=== PATIENT | female | born 1980 | race Caucasian/White ===

== ENCOUNTER 2018-04-01 15:07 | Emergency (ER) | payer BC, MEDICAID, SELFPAY ==
[2018-04-01 15:29] VITALS: BP 150/73; PULSE 102; RESP 16; TEMP 36.8; O2SAT 99
--- NOTE | 2018-04-01 15:40 | W.ED.GENAD ---
Discharge Plan Disposition Patient Disposition: HOME Condition: Good Discharge Details Chief Complaint: RespSymp Clinical Impression: Cough Primary Care Provider: Deb Kelly ED Provider: Viraj Martinez Home Meds and New Rx's Prescriptions: New doxycycline hyclate 100 mg tablet 100 mg PO BID Qty: 14 RF: 0 Continue bupropion HCl [Budeprion SR] 150 MG tablet extended release 12 hr 150 mg PO BID RF: 0 loratadine 10 MG tablet,disintegrating 10 mg PO DAILY RF: 0 VITAMIN D3 1,000 UNIT capsule 1,000 unit PO DAILY RF: 0 ferrous sulfate [iron] 325 MG capsule, extended release 325 mg PO RF: 0 doxepin [Silenor] 3 MG tablet 10 mg PO HS RF: 0 magnesium oxide 400 MG tablet 1 tab PO DAILY RF: 0 Discharge Instructions Instructions: Acute Cough (ED) Additional Instructions: follow up with your primary care provider if you are not improving this week if you have worsening trouble breathing or high fevers return to the emergency department for reevaluation Discharge Data Discharge Physician: Viraj Martinez Medical Decision Making 37 yo female who denies chronic med problems comes in with complaints of cough for a week and low grade fevers. She denies any sob or ches tpain, no recent travel. On exam she appears well with moistmembranes, speaking in full sentences. Has clear lungs other than small area of crackles in rll on auscultation. Given this findings will initiate abx to cover for cAP. She is stable for outpatient management, advised f/u with pcp if not improving and return precautions given Differential Diagnosis uri, cap, bronchitis HPI General Mode of arrival: ambulatory. Date/Time Provider Initiated Documentation: 04/01/18 15:34. Limitations to Documentation: no limitations. Information obtained by: patient. History of Present Illness 37 year old F presents to the emergency department with the chief complaint of cough, described as moderate, with intensity rated at 5. Patient started experiencing this week(s) (1) and it has been constant. No relieving factors improve symptom(s), No exacerbating factors reported . Patient did receive the following treatments prior to arrival, none Related Data Home Medications Medication Instructions Recorded Confirmed bupropion HCl [Budeprion SR] 150 mg PO BID tab-cap 06/25/13 04/01/18 loratadine 10 mg PO DAILY tab-cap 06/25/13 04/01/18 Vitamin D3 1,000 unit PO DAILY 11/27/15 04/01/18 doxepin [Silenor] 10 mg PO HS 02/10/17 04/01/18 ferrous sulfate [iron] 325 mg PO 02/10/17 magnesium oxide 1 tab PO DAILY 03/05/17 04/01/18 doxycycline hyclate 100 mg PO BID #14 tab 04/01/18 Previous Rx's Medication Instructions Recorded doxycycline hyclate 100 mg PO BID #14 tab 04/01/18 Allergies Allergy/AdvReac Type Severity Reaction Status Date / Time guanfacine HCl [From Tenex] Allergy Intermediate Unverified 04/01/18 15:32 hydrocodone AdvReac GI upset Unverified 04/01/18 15:32 General Stated Complaint: RespSymp ROLF: 4 Review of Systems Review of Systems All systems reviewed & are unremarkable except as noted in HPI and below Constitutional Denies weakness Eyes Denies loss of vision ENT Denies change in voice Cardiovascular Denies chest pain and Denies dyspnea Respiratory Denies dyspnea Gastrointestinal Denies abdominal pain, Denies nausea and Denies vomiting Genitourinary Denies dysuria Musculoskeletal Denies joint swelling Integumentary/Breasts Denies rash Neurologic Denies loss of vision and Denies weakness Psychiatric Denies depression Endocrine Denies cold intolerance and Denies heat intolerance Allergic/Immunologic Denies urticaria [facility] Social History Smoking/Tobacco Use Status: Never Exam Const General: no acute distress Orientation: alert HENMT Head: normal to inspection Ears: external ears normal General nose exam: external nose normal Mouth: moist mucous membranes Eyes General: appearance normal, both eyes and all related structures Neck Neck: normal visual inspection Resp Effort & Inspection: normal respiratory effort and able to speak in complete sentences Cardio Rate: regular rate Skin General skin exam: no rashes or lesions noted Neuro General: alert and oriented x3 Extrem General: normal to inspection Psych Mental Status: mental status grossly normal Course Vital Signs Temperature 36.8 C 04/01/18 15:29 Pulse 102 H 04/01/18 15:29 Respiratory Rate 16 04/01/18 15:29 Blood Pressure 150/73 H 04/01/18 15:29 Pulse Oximetry 99 04/01/18 15:29 Temperature 36.8 C 04/01/18 15:29 Temperature Source Skin 04/01/18 15:29 Pulse 102 H 04/01/18 15:29 Respiratory Rate 16 04/01/18 15:29 Respiratory Effort 04/01/18 15:35 Blood Pressure 150/73 H 04/01/18 15:29 Pulse Oximetry 99 04/01/18 15:29 Pain Level 7 04/01/18 15:29
--- NOTE | 2018-04-01 15:43 | ED.GENADUL_ITS ---
Discharge Plan Disposition Patient Disposition: HOME Condition: Good Discharge Details Chief Complaint: RespSymp Clinical Impression: Cough Primary Care Provider: Deb Kelly ED Provider: Viraj Martinez Home Meds and New Rx's Prescriptions: New doxycycline hyclate 100 mg tablet 100 mg PO BID Qty: 14 RF: 0 Continue bupropion HCl [Budeprion SR] 150 MG tablet extended release 12 hr 150 mg PO BID RF: 0 loratadine 10 MG tablet,disintegrating 10 mg PO DAILY RF: 0 VITAMIN D3 1,000 UNIT capsule 1,000 unit PO DAILY RF: 0 ferrous sulfate [iron] 325 MG capsule, extended release 325 mg PO RF: 0 doxepin [Silenor] 3 MG tablet 10 mg PO HS RF: 0 magnesium oxide 400 MG tablet 1 tab PO DAILY RF: 0 Discharge Instructions Instructions: Acute Cough (ED) Additional Instructions: follow up with your primary care provider if you are not improving this week if you have worsening trouble breathing or high fevers return to the emergency department for reevaluation Discharge Data Discharge Physician: Viraj Martinez Medical Decision Making 37 yo female who denies chronic med problems comes in with complaints of cough for a week and low grade fevers. She denies any sob or ches tpain, no recent travel. On exam she appears well with moistmembranes, speaking in full sentences. Has clear lungs other than small area of crackles in rll on auscultation. Given this findings will initiate abx to cover for cAP. She is stable for outpatient management, advised f/u with pcp if not improving and return precautions given Differential Diagnosis uri, cap, bronchitis HPI General Mode of arrival: ambulatory . Date/Time Provider Initiated Documentation: 04/01/18 15:34 . Limitations to Documentation: no limitations . Information obtained by: patient . History of Present Illness 37 year old F presents to the emergency department with the chief complaint of cough, described as moderate, with intensity rated at 5. Patient started experiencing this week(s) (1) and it has been constant. No relieving factors improve symptom(s), No exacerbating factors reported . Patient did receive the following treatments prior to arrival, none Related Data Home Medications Medication Instructions Recorded Confirmed bupropion HCl [Budeprion SR] 150 mg PO BID tab-cap 06/25/13 04/01/18 loratadine 10 mg PO DAILY tab-cap 06/25/13 04/01/18 Vitamin D3 1,000 unit PO DAILY 11/27/15 04/01/18 doxepin [Silenor] 10 mg PO HS 02/10/17 04/01/18 ferrous sulfate [iron] 325 mg PO 02/10/17 magnesium oxide 1 tab PO DAILY 03/05/17 04/01/18 doxycycline hyclate 100 mg PO BID #14 tab 04/01/18 Previous Rx's Medication Instructions Recorded doxycycline hyclate 100 mg PO BID #14 tab 04/01/18 Allergies Allergy/AdvReac Type Severity Reaction Status Date / Time guanfacine HCl [From Tenex] Allergy Intermediate Unverified 04/01/18 15:32 hydrocodone AdvReac GI upset Unverified 04/01/18 15:32 General Stated Complaint: RespSymp ROLF: 4 Review of Systems Review of Systems All systems reviewed & are unremarkable except as noted in HPI and below Constitutional Denies weakness Eyes Denies loss of vision ENT Denies change in voice Cardiovascular Denies chest pain and Denies dyspnea Respiratory Denies dyspnea Gastrointestinal Denies abdominal pain, Denies nausea and Denies vomiting Genitourinary Denies dysuria Musculoskeletal Denies joint swelling Integumentary/Breasts Denies rash Neurologic Denies loss of vision and Denies weakness Psychiatric Denies depression Endocrine Denies cold intolerance and Denies heat intolerance Allergic/Immunologic Denies urticaria [facility] Social History Smoking/Tobacco Use Status: Never Exam Const General: no acute distress Orientation: alert HENMT Head: normal to inspection Ears: external ears normal General nose exam: external nose normal Mouth: moist mucous membranes Eyes General: appearance normal, both eyes and all related structures Neck Neck: normal visual inspection Resp Effort & Inspection: normal respiratory effort and able to speak in complete sentences Cardio Rate: regular rate Skin General skin exam: no rashes or lesions noted Neuro General: alert and oriented x3 Extrem General: normal to inspection Psych Mental Status: mental status grossly normal Course Vital Signs Temperature 36.8 C 04/01/18 15:29 Pulse 102 H 04/01/18 15:29 Respiratory Rate 16 04/01/18 15:29 Blood Pressure 150/73 H 04/01/18 15:29 Pulse Oximetry 99 04/01/18 15:29 Temperature 36.8 C 04/01/18 15:29 Temperature Source Skin 04/01/18 15:29 Pulse 102 H 04/01/18 15:29 Respiratory Rate 16 04/01/18 15:29 Respiratory Effort 04/01/18 15:35 Blood Pressure 150/73 H 04/01/18 15:29 Pulse Oximetry 99 04/01/18 15:29 Pain Level 7 04/01/18 15:29
== END 2018-04-01 15:49 | disposition home or self-care (01) ==
LOC: ER 15:55
PROVIDERS: Emergency Provider Emergency Medicine; PCP Nurse Practitioner Family
DX: R05 Cough (principal); R50.9 Fever, unspecified
CPT/HCPCS: 99283

== ENCOUNTER 2018-08-07 10:13 | Outpatient (REF) | payer BC, SELFPAY ==
[2018-08-07 13:56] LABS: HCT 42.2 % (36.0-46.0); HGB 14.6 g/dL (12.0-15.5); Mean Corp. HGB Concentration 34.6 g/dL (32.0-36.0); Mean Corpuscular Hemoglobin 30.3 pg (27.0-33.0); Mean Corpuscular Volume 87.6 fL (80-95); Mean Platelet Volume 11.4 fL (8.0-11.0); Platelet Count 259 x1000/uL (130-400); RBC 4.82 m/cumm (4.00-5.20); RBC Distribution Width 12.4 % (11.7-14.6); White Blood Cell Count 6.84 k/cumm (4.4-10.8)
[2018-08-07 14:17] LABS: ALT 19 U/L (12-78); AST 17 U/L (15-37); Albumin 3.5 g/dL (3.4-5.0); Alkaline Phosphatase 54 U/L (46-116); Anion Gap 6.7 mmol/L (3-11); BUN 13 mg/dL (7-18); Bilirubin, Total 0.3 mg/dL (0.2-1.0); CO2 27.3 mmol/L (21.0-32.0); CREATININE 0.87 mg/dL (0.55-1.02); Calcium 8.7 mg/dL (8.5-10.1); Chloride 107 mmol/L (98-107); Cholesterol 191 mg/dL (50-200); Glucose 92 mg/dL (70-100); HDL Cholesterol 32 mg/dL (40-60); LDL CHOLESTEROL 144 mg/dL (<100); Potassium 4.2 mmol/L (3.5-5.1); Sodium 141 mmol/L (136-145); Total Protein 7.2 g/dL (6.4-8.2); Triglyceride 127 mg/dL (30-150)
== END 2018-08-07 10:33 ==
LOC: NCHCN 10:13
PROVIDERS: PCP Nurse Practitioner Family; Visit Provider Nurse Practitioner Family
DX: Z13.0 Encounter for screening for diseases of the blood and blood-forming organs and certain disorders involving the immune mechanism (principal); Z13.228 Encounter for screening for other metabolic disorders; Z13.220 Encounter for screening for lipoid disorders; Z13.6 Encounter for screening for cardiovascular disorders
CPT/HCPCS: 80053; 80061; 83721; 85027

== ENCOUNTER 2020-08-11 19:24 | Outpatient (REF) | payer BC, SELFPAY ==
[2020-08-11 15:52] LABS: HGB 14.8 g/dL (11.2-15.7); MCH 29.9 pg (27.0-33.0); MCHC 34.4 % (32.0-36.0); MCV 86.9 fL (80-95); MPV 10.9 fL (8.0-11.0); Platelet Count 267 10^3/uL (130-400); RBC 4.95 10^6/uL (3.93-5.22); RDW 11.5 % (11.7-14.6); RDW-SD 36.6 fL; WBC 5.97 10^3/uL (4.4-10.8)
[2020-08-11 16:25] LABS: Vitamin D 25 Total 35.5 ng/ml (30-100)
[2020-08-11 18:16] LABS: Iron 99 ug/dL (50-170)
[2020-08-11 18:47] LABS: ALT 25 U/L (14-59); AST 13 U/L (15-37); Albumin 3.6 g/dL (3.4-5.0); Alkaline Phosphatase 55 U/L (46-116); Anion Gap 7.9 mmol/L (3-11); BUN 12 mg/dL (7-18); Bilirubin, Total 0.4 mg/dL (0.2-1.0); CO2 26.1 mmol/L (21.0-32.0); CREATININE 0.8 mg/dL (0.55-1.02); Calcium 8.6 mg/dL (8.5-10.1); Chloride 106 mmol/L (98-107); Folate 6.8 ng/mL (8.6-20.0); Glucose 85 mg/dL (74-106); Potassium 4.1 mmol/L (3.5-5.1); Sodium 140 mmol/L (136-145); TSH (W/Ref FT4) 2.11 uIU/mL (0.36-3.74); Total Protein 7.3 g/dL (6.4-8.2); Vitamin B12 436 pg/mL (193-986)
[2020-08-12 11:43] LABS: Hepatitis C Ab w Rflx HCV PCR Negative (Negative)
[2020-08-12 12:28] LABS: HIV-1/2 Ag & Ab Screen Negative (Negative)
== END 2020-08-11 19:25 | disposition home or self-care (01) ==
LOC: NCHCN 19:24
PROVIDERS: PCP Nurse Practitioner Family; Visit Provider Nurse Practitioner Family
DX: D64.9 Anemia, unspecified (principal); F41.8 Other specified anxiety disorders; G25.81 Restless legs syndrome; Z11.4 Encounter for screening for human immunodeficiency virus [HIV]; Z11.59 Encounter for screening for other viral diseases; Z13.21 Encounter for screening for nutritional disorder
CPT/HCPCS: 80053; 82306; 85027; 86803; 87389; 82607; 82746; 83540; 84443

== ENCOUNTER 2020-09-22 13:49 | Outpatient (REF) | payer BC, SELFPAY ==
--- NOTE | 2020-09-22 13:00 | PAPFT_PTH ---
PATIENT: Rashida Restrepo LOC: [facility] U#:[id number] AGE/SX: 39/F ROOM: RE09/22/[address]: Jimi Wilkes : 1980 BED: DIS: 09/22/2020 SPEC #: [id number] RECD: 09/22/20 15:19 STATUS: YARELY RENorma #: [id number] BING: 09/22/20 13:[address]: Jimi Wilkes DEPT: [facility] Cytology RECD BY: Cathie Holm ENTERED: 09/22/20 15:19 SP TYPE: PAPFT OTHR DR: Deb Kelly Tissues: 1 - CX/ENDOCX FOR PAP SMEARS Procedures: PAP THIN PREP/UVM Screening HPV DNA PROBE Comments: [id number]
== END 2020-09-22 13:50 | disposition home or self-care (01) ==
LOC: NCHCN 13:49
PROVIDERS: PCP Nurse Practitioner Family; Visit Provider Nurse Practitioner Family
DX: Z00.00 Encounter for general adult medical examination without abnormal findings (principal); Z12.4 Encounter for screening for malignant neoplasm of cervix; Z01.419 Encounter for gynecological examination (general) (routine) without abnormal findings; Z11.51 Encounter for screening for human papillomavirus (HPV)
CPT/HCPCS: 88142; 87624

== ENCOUNTER 2022-01-04 04:01 | Outpatient (CLI) | payer BC, SELFPAY ==
[2022-01-04 15:47] LABS: ALT 26 U/L (14-59); AST 6 U/L (15-37); Albumin 3.6 g/dL (3.4-5.0); Alkaline Phosphatase 58 U/L (46-116); Anion Gap 9.4 mmol/L (3-11); BUN 13 mg/dL (7-18); Bilirubin, Total 0.4 mg/dL (0.2-1.0); CO2 26.6 mmol/L (21.0-32.0); CREATININE 1.1 mg/dL (0.55-1.02); Calcium 8.6 mg/dL (8.5-10.1); Chloride 104 mmol/L (98-107); Cholesterol 251 mg/dL (<200); Estimated GFR 55.01 (mL/min/1.73m2); Glucose 119 mg/dL (74-106); HDL Cholesterol 37 mg/dL (40-60); Sodium 140 mmol/L (136-145); Total Protein 7.8 g/dL (6.4-8.2); Triglyceride 424 mg/dL (<150)
[2022-01-04 16:00] LABS: LDL CHOLESTEROL 166 mg/dL (<100)
== END 2022-01-04 04:02 | disposition home or self-care (01) ==
LOC: LBO 04:01
PROVIDERS: PCP Nurse Practitioner Family; Visit Provider Nurse Practitioner Family
DX: R03.0 Elevated blood-pressure reading, without diagnosis of hypertension (principal); E78.5 Hyperlipidemia, unspecified
CPT/HCPCS: 36415; 80053; 80061; 83721

== ENCOUNTER 2022-01-05 11:56 | Outpatient (CLI) | payer BC, SELFPAY | END 2022-01-05 11:57 | disposition home or self-care (01) | LOC: LBO 11:56 | PROVIDERS: PCP Nurse Practitioner Family ==

== ENCOUNTER 2022-01-08 01:22 | Outpatient (CLI) | payer BC, SELFPAY ==
--- OUTSIDE RECORDS SUMMARY | 2022-01-08 01:25 | XMS_ITS | Encounter Summary ---
:1980 Author Organization [facility] Address [address] [place] [address] Care Team Providers Name Role Phone Unknown, Provider Primary Care Provider Encounter Details Date Type Department Care Team Description 09/23/2020 Lab Requisition [facility] Jimi Wilkes Enc ounter for general adult medical examination without abnormal findings; Pathology & DNP Encounter for screening for malignant ne oplasm of cervix; Laboratory Medicine [address] Mary callejas for screening for human papillomavirus (HPV) - [facility] [address] [place] [address] [phone] Social History Tobacco Use Types Packs/Day Years Used Date Never Assessed Sex Assigned at Date Recorded Not on file documented as of this encounter Plan of Treatment Not on filedocumented as of this encounter Procedures Procedure Name Priority Date/Time Associated Diagnosis Comme nts PAP TEST Today 09/22/2020 13:00 Encounter for general Re sults for this EDT adult medical procedure are in examination without the resu lts abnormal finding s section. Encounter for screening for malignant neoplasm of cervix Encounter for screening for human papillomavirus (HPV) HUMAN PAPILLOMAVIRUS Today 09/22/2020 13:00 Encounter for ge neral Results for this (HPV) DETECTION-HIGH EDT adult medical proced ure are in RISK TYPES examination without the resu lts abnormal finding s section. Encounter for screening for malignant neoplasm of cervix Encounter for screening for human papillomavirus (HPV) documented in this encounter Results HUMAN PAPILLOMAVIRUS (HPV) DETECTION-HIGH RISK TYPES (09/22/2020 13:00 EDT) Human Papillomavirus NegativeComment: No Negative UV MEDICAL (HPV) Detection-High E6 or E7 mRNA is CENTER LABORATOR Y Types detected from HPV SERVICES types 16,18,31,33,35,39,45 ,51,52,56,58,59,66, and 68 by school lunch monitor mediated amplification. Specimen Pap Test - Cervix and/or Endocervix Performing Organization Address City/State/ZIP Code Phon e Number [facility] [address] [place] [address] SERVICES PAP TEST (09/22/2020 13:00 EDT) Specimens A. Cervix and/or [facility] MEDICAL Endocervix , ThinPrep CENTER Imaging System with LABORATORY Manual Evaluation SERVICES Specimen Adequacy Satisfactory for [facility] MEDICAL Evaluation - CENTER transformation zone LABORATORY component present SERVICES General Negative for [facility] Categorization intraepithelial CENTER lesion or malignancy LABORATORY SERVICES Attestation . [facility] Electronically CENTER signed by BASILIO Marcos CT(ASC P) SERVICES on 09/30/2020 at 0932 Clinical History See below [facility] SERVICES HPV The result for the Human Pap illomavirus (HPV) Detection-High Risk Types is Negative. No E6 or E7 mRNA is detected from HPV types 16,18,31,33,35,39,45,51,52,56,58,59,66, and 68 by school lunch monitor mediated [facility] MEDICAL amplification.Testing was pe rformed on specimen [id number] and was resulted on 09/30/2020 0924 EDT by JEREMIAH, LAB INSTRUMENT RESULTS IN [facility] SERVICES Performing Lab [facility] SERVICES Scanned Images [facility] SERVICES Specimen Pap Test - Cervix and/or Endocervix Performing Organization Address City/State/ZIP Code Phon e Number [facility] [address] [place] [address] SERVICES documented in this encounter Visit Diagnoses Diagnosis Encounter for general adult medical exam ination without abnormal findings Unspecified general medical examination Encounter for screening for malignant ne oplasm of cervix Screening for malignant neoplasm of the cervix Encounter for screening for human papill omavirus (HPV) Special screening examination for human papillomavirus (HPV) documented in this encounter Care Teams Wire Stitcher Operator Relationship Specialty Start Date End Date Unknown, Provider, PCP - General 10/22/08 documented as of this encounter
--- OUTSIDE RECORDS SUMMARY | 2022-01-08 01:25 | XMS_ITS | Encounter Summary ---
:1980 Author Organization [facility] Address [address] [place] [address] Care Team Providers Name Role Phone Unknown, Provider Primary Care Provider Encounter Details Date Type Department Care Team Description 01/11/2011 Results Only [facility] Juan Singer, BATHING SUIT MAKER Laboratory Services - [address] [place], [place] [address] [facility] [address] [place], [place] [id number] [phone] Social History Tobacco Use Types Packs/Day Years Used Date Never Assessed Sex Assigned at Date Recorded Not on file documented as of this encounter Plan of Treatment Not on filedocumented as of this encounter Procedures Procedure Name Priority Date/Time Associated Diagnosis Comme nts PAP TEST- RESULT Routine 01/11/2011 0:00 EDT Resu lts for this ONLY procedure are i n the results section. documented in this encounter Results PAP TEST- RESULT ONLY (01/11/2011 0:00 EDT) Pathology Report: CYTOPATHOLOGY REPORT ? [facility] ALL EN ? LAB Reports generated via electr onic interface contain original data; ? however they are lacking the format of the original report. ? Caution should be taken when reading/interpreting unformatted reports. ? Name: ? DORY ERICKSON ? Accession #: ? [id number] ? : ? 1980 (Age: 30) ??F ?Collect Date: ? 01/11/2011 ? Location: ? [facility] ? Receive Date: ? 01/12/2011 ? Provider: ?MERNA FAYE OOD BATHING SUIT MAKER ? Copy to: ? Specimen/Source: ? Pap Test, Cervix/Endocervix, ThinPrep Imaging System ? with manual evaluation ? Last Menstrual Period: ? 07/11/11 ? Previous Gynecologic Patholo gy: ? LSIL: 07/06 ? HPV: + 07/06 ? CUCA I: 08/06 ? Treatment History: ? Cervical biopsy: 08/06 CUCA I ? Other: ? Additional clinical informat ion: Pap 5/12/09 neg. ? SPECIMEN ADEQUACY ? Satisfactory for Eval uation ? - transformation zone compon ent present ? GENERAL CATEGORIZATION ? Negative for Intraepi thelial Lesion or Malignancy ? Document reviewed and electr onically signed by: ? Kodi Soriano, CT( CP) ? Report Date: ??08/05/ 2011 14:36 ? End of Report ? Specimen Performing Organization Address City/State/ZIP Code Phon e Number [facility] [address] [place] [address] SERVICES [facility] [address] [place] [address] documented in this encounter Visit Diagnoses Not on filedocumented in this encounter Care Teams Art Supervisor Relationship Specialty Start Date End Date Unknown, Provider, PCP - General 10/22/08 documented as of this encounter
--- OUTSIDE RECORDS SUMMARY | 2022-01-08 01:25 | XMS_ITS | Encounter Summary ---
:1980 Author Organization [facility] Address [address] [place] [address] Care Team Providers Name Role Phone Unknown, Provider Primary Care Provider Encounter Details Date Type Department Care Team Description 02/04/2006 Results Only [facility] - Richie Zambrano MD Maple conversion [address] [place], [place] [id number] [place] [address] [phone] Social History Tobacco Use Types Packs/Day Years Used Date Never Assessed Sex Assigned at Date Recorded Not on file documented as of this encounter Plan of Treatment Not on filedocumented as of this encounter Procedures Procedure Name Priority Date/Time Associated Diagnosis Comme [facility] SURGICAL PATHOLOGY Routine 02/04/2006 0:00 EDT Re sults for this procedure are i n the results section. documented in this encounter Results SURGICAL PATHOLOGY (02/04/2006 0:00 EDT) Pathology Report: SURGICAL PATHOLOGY REPORT [facility] Reports generated via electronic interface contain noble ginal data; LAB however they are lacking the format of the original re port. Caution should be taken when reading/interpreting unfo rmatted reports. Name: ? DORY ERICKSON ? Accession #: ? [id number] ? : ? 1980 (Age: 25) ??F ? Collect Date: ? 02/04/2006 ? Location: ? [facility] ? Receive Date: ? 02/08/20 06 ? Provider: JAG ZAMBRANO MD Copy to: YONAS AZUL ? Final Pathologic Diagnosis: ? Cervix, 8 o'clock, biopsy: 1. 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 ??See comment. 2. ?Chronic cervicitis. Comment: ? Deeper levels have been examined. (Dr. Aguayo)/ [facility] Document reviewed and electronically signed by: MUNDO PINEDO MD Report ??Date: 02/09/2006 16:04 By the signature above, the attending physician certif ies that he/she has personally conducted a gross and/or microscopic examin ation of the described specimens and rendered or confirmed the above diagnosi s. Specimen(s) Received: ? Bx of cervix 8 o'clock Clinical History: ? History of LGSIL on Pap ; biopsy 8 o'clock Gross Description: ? Received in formalin labelled Karan-Hennign and cervical bx 8 o'clock is a dudley-white 0.4 x 0.3 x 0.3 cm soft tissue fragment. ??The specimen is entirely submitted in one cassette. (Jazmín Cardona/[facility] End of Report Specimen Performing Organization Address City/State/ZIP Code Phon e Number [facility] [address] [place] [address] SERVICES [facility] [address] [place] [address] documented in this encounter Visit Diagnoses Not on filedocumented in this encounter Care Teams Concrete Pump Operator Helper Relationship Specialty Start Date End Date Unknown, Provider, PCP - General 10/22/08 documented as of this encounter
--- OUTSIDE RECORDS SUMMARY | 2022-01-08 01:25 | XMS_ITS | Encounter Summary ---
:1980 Author Organization [facility] Address [address] [place] [address] Care Team Providers Name Role Phone Unknown, Provider Primary Care Provider Encounter Details Date Type Department Care Team Description 10/22/2008 Orders Only [facility] Juan Singer, KNOCKUP WORKER Laboratory Services - [address] [place], [place] [address] [facility] [address] [place], [place] [id number] [phone] Social History Tobacco Use Types Packs/Day Years Used Date Never Assessed Sex Assigned at Date Recorded Not on file documented as of this encounter Plan of Treatment Not on filedocumented as of this encounter Procedures Procedure Name Priority Date/Time Associated Diagnosis Comme nts CYTOPATHOLOGY Routine 10/22/2008 0:00 EDT Results for this procedure are i n the results section . documented in this encounter Results CYTOPATHOLOGY (10/22/2008 0:00 EDT) Pathology Report: CYTOPATHOLOGY REPORT ? [facility] EN ? LAB Reports generated via electr onic interface contain original data; ? however they are lacking the format of the original report. ? Caution should be taken when reading/interpreting unformatted reports. ? Name: ? DORY ERICKSON ? Accession #: ? [id number] ? : ? 1980 (Age: 27) ??F ?Collect Date: ? 10/22/2008 ? Location: ? [facility] ? Receive Date: ? 10/23/2008 ? Provider: ?MERNA HAYG OOD KNOCKUP WORKER ? Copy to: ? Specimen/Source: ? Pap Test, Cervix/Endocervix, ThinPrep Imaging System ? with manual evaluation ? Last Menstrual Period: ? 4/16/09 ? Previous Gynecologic Patholo gy: ? LSIL: 7/06 ? HPV: + 7/06, 3/22/07 and 4/3 /08 paps negative ? CUCA I: 8/06 ? Treatment History: ? Cervical biopsy: 8/06 ? Other: ? HPVA - HPV testing requested if ASC-US on the current ThinPrep Pap test. ? SPECIMEN ADEQUACY ? Satisfactory for Eval uation ? - transformation zone compon ent present ? GENERAL CATEGORIZATION ? Negative for Intraepi thelial Lesion or Malignancy ? INTERPRETATION ? Reactive cellular tito nges associated with inflammation present (includes ?? repair). ? Document reviewed and electr onically signed by: ? Karan Kodi Frandy , MD ? Report Date: ??05/15/ 2009 14:29 ? End of Report ? Specimen Performing Organization Address City/State/ZIP Code Phon e Number [facility] [address] [place] [address] SERVICES [facility] [address] [place] [address] documented in this encounter Visit Diagnoses Not on filedocumented in this encounter Care Teams Occupational Therapy Department Chair Relationship Specialty Start Date End Date Unknown, Provider, PCP - General 10/22/08 documented as of this encounter
--- OUTSIDE RECORDS SUMMARY | 2022-01-08 01:25 | XMS_ITS | Clinical Summary ---
:1980 Author Organization [facility] Address [address] [place] [address] Care Team Providers Name Role Phone Unknown, Provider Primary Care Provider Social History Tobacco Use Types Packs/Day Years Used Date Never Assessed Sex Assigned at Date Recorded Not on file Plan of Treatment Not on file Care Teams Record Label Intern Relationship Specialty Start Date End Date Unknown, Provider, PCP - General 10/22/08
--- OUTSIDE RECORDS SUMMARY | 2022-01-08 01:25 | XMS_ITS | Encounter Summary ---
:1980 Author Organization [facility] Address [address] [place] [address] Care Team Providers Name Role Phone Unknown, Provider Primary Care Provider Encounter Details Date Type Department Care Team Description 12/28/2005 Results Only [facility] - Vaishali Lentz, Mariam major, conversion TALENT ACQUISITION PROJECT MANAGER [address] [place], [place] [id number] [place] [address] [phone] (Wo rk) Social History Tobacco Use Types Packs/Day Years Used Date Never Assessed Sex Assigned at Date Recorded Not on file documented as of this encounter Plan of Treatment Not on filedocumented as of this encounter Procedures Procedure Name Priority Date/Time Associated Diagnosis Comme nts CYTOPATHOLOGY Routine 12/28/2005 0:00 EDT Results for this procedure are i n the results section . documented in this encounter Results CYTOPATHOLOGY (12/28/2005 0:00 EDT) Pathology Report: CYTOPATHOLOGY REPORT [facility] Reports generated via electronic interface contain noble ginal data; however they are lacking the format of the original re port. Caution should be taken when reading/interpreting unfo rmatted reports. Name: ? DORY ERICKSON ? Accession #: ? [id number] : ? 1980 (Age: 25) ??F ?Collect Date: ? 12/11 Location: ? [facility] ? Receive Date : ? 12/30/2005 Provider: ?YONAS LENTZ TALENT ACQUISITION PROJECT MANAGER Copy to: ? Specimen/Source: ? ThinPrep Pap Test, Cervix/Endocervix, processed on [employer] ThinPrep Imaging System, with manual evaluation Last Menstrual Period: ? 11/28/05 Hormonal/Contraceptive Status: ? Oral contraceptives Other: ? Additional clinical information: Negative for intraepi thelial lesion or malignancy (NILM) 01/05/05 HPVA - HPV testing requested if ASC-US on the current ThinPrep Pap test. ? SPECIMEN ADEQUACY ? Satisfactory for Evaluation - transformation zone component present GENERAL CATEGORIZATION ? Epithelial Cell Abnormality INTERPRETATION ? Squamous Cell Abnormality - Low grade squamous intraepithelial lesion (LSIL). EDUCATIONAL NOTES/RECOMMENDATIONS ? COUNT INCLUDES THE [facility] recommends edna wing the 2001 Consensus Guidelines for the Management of Women with Cervical Cytological Abnormalities (JAM A,2002;287:2120-9). Management algorithms have b een distributed by COUNT INCLUDES THE [facility] and are available online at www.ASCCP.org. ? Document reviewed and electronically signed by: ? LALO ONTIVEROS MD ? Report Date: ??01/03/2006 12:16 End of Report Specimen Performing Organization Address City/State/ZIP Code Phon e Number [facility] [address] [place] [address] SERVICES [facility] [address] [place] [address] documented in this encounter Visit Diagnoses Not on filedocumented in this encounter Care Teams Belt Sewer Relationship Specialty Start Date End Date Unknown, Provider, PCP - General 10/22/08 documented as of this encounter
--- OUTSIDE RECORDS SUMMARY | 2022-01-08 01:25 | XMS_ITS | Encounter Summary ---
:1980 Author Organization [facility] Address [address] [place] [address] Care Team Providers Name Role Phone Unknown, Provider Primary Care Provider Encounter Details Date Type Department Care Team Description 09/01/2006 Results Only [facility] - Ana Rosa Stout od, CHAUFFEUR MOTORBUS conversion [address] [place] [address] [address] [place] [phone] (Wo rk) Social History Tobacco Use Types Packs/Day Years Used Date Never Assessed Sex Assigned at Date Recorded Not on file documented as of this encounter Plan of Treatment Not on filedocumented as of this encounter Procedures Procedure Name Priority Date/Time Associated Diagnosis Comme nts CYTOPATHOLOGY Routine 09/01/2006 0:00 EDT Results for this procedure are i n the results section . documented in this encounter Results CYTOPATHOLOGY (09/01/2006 0:00 EDT) Pathology Report: CYTOPATHOLOGY REPORT [facility] Reports generated via electronic interface contain noble ginal data; however they are lacking the format of the original re port. Caution should be taken when reading/interpreting unfo rmatted reports. Name: ? DORY ERICKSON ? Accession #: ? [id number] : ? 1980 (Age: 25) ??F ?Collect Date: ? 08/12 Location: ? [facility] ? Receive Date : ? 09/02/2006 Provider: ?ANA ROSA ARLENE CHAUFFEUR MOTORBUS Copy to: ? Specimen/Source: ? ThinPrep Pap Test, Cervix/Endocervix, processed on [employer] ThinPrep Imaging System, with manual evaluation Last Menstrual Period: ? 08/07/06 Previous Gynecologic Pathology: ? LSIL: 12/16 and 01/16 HPV: 12/16 Yes: Cervical intraepithelial neoplasia CUCA I: 01/16 Treatment History: ? Cervical biopsy: 8' o'clock 1. ??LSIL, CUCA I ??2. chr. cervicitis Other: ? Additional clinical information: Chronic cervicitis HPVA - HPV testing requested if ASC-US on the current ThinPrep Pap test. ? SPECIMEN ADEQUACY ? Satisfactory for Evaluation - transformation zone component present - scant squamous epithelial component GENERAL CATEGORIZATION ? Negative for Intraepithelial Lesion or Malignan cy INTERPRETATION ? Reactive cellular tito nges associated with inflammation present (includes repair). ? Document reviewed and electronically signed by: ? Najma Mcnamara MD PhD ? Report Date: ??09/06/2006 13:24 End of Report Specimen Performing Organization Address City/State/ZIP Code Phon e Number [facility] [address] [place] [address] SERVICES [facility] [address] [place] [address] documented in this encounter Visit Diagnoses Not on filedocumented in this encounter Care Teams Open Die Inspector Relationship Specialty Start Date End Date Unknown, Provider, PCP - General 10/22/08 documented as of this encounter
--- OUTSIDE RECORDS SUMMARY | 2022-01-08 01:25 | XMS_ITS | Encounter Summary ---
:1980 Author Organization [facility] Address [address] [place] [address] Care Team Providers Name Role Phone Unknown, Provider Primary Care Provider Encounter Details Date Type Department Care Team Description 09/06/2014 Results Only [facility]- [facility] Kath Trotter, DO [phone] [facility] [facility] [address] [place], [place] [phone] (Wo rk) Social History Tobacco Use Types Packs/Day Years Used Date Never Assessed Sex Assigned at Date Recorded Not on file documented as of this encounter Plan of Treatment Not on filedocumented as of this encounter Procedures Procedure Name Priority Date/Time Associated Diagnosis Comme [facility] SURGICAL PATHOLOGY Routine 09/06/2014 8:27 EDT Re sults for this procedure are i n the results section. documented in this encounter Results SURGICAL PATHOLOGY (09/06/2014 8:27 EDT) Pathology Report: SURGICAL PATHOLOGY REPORT [facility] Reports generated via electronic interface contain noble ginal data; LABORATORY however they are lacking the format of the original re port. SERVICES Caution should be taken when reading/interpreting unfo rmatted reports. Name: ? DORY ERICKSON ? Accession #: ? [id number] ? : ? 1980 (Age: 33) ??F ? Collect Date: ? 09/06/2014 ? Location: ? [facility] ? Receive Date: ? 015 ? Provider: KAHT TROTTER DO Copy to: SLY TORREZ ABSEILING INSTRUCTOR ? Final Pathologic Diagnosis: SOFT TISSUE OF ELBOW, EXCISION: - Nodular fat necrosis. ??See comment. Comment: The excision consists of a nodular portion of fibroadi pose tissue with fat necrosis. ??No cyst is present. ??(Dr. Townsend)/irenan Microscopic Description: Sections consist of a circum scribed portion of fibrous and adipose tissue. ??The fibrous tissue varies in cellularity with reacti ve fibroblasts. ??The adipose tissue consists of irregular lobules, some of wh ich show ischemic change with ghost-like outlines of nuclei. ??(Dr. Townsend)/stiven Document reviewed and electronically signed by: VALERIY TOWNSEND MD Report ??Date: 09/10/2014 14:44 By the signature above, the attending physician certif ies that he/she has personally conducted a gross and/or microscopic examin ation of the described specimens and rendered or confirmed the above diagnosi s. Specimen(s) Received: Elbow cyst Clinical History: Elbow cyst Gross Description: ? Received in formalin labelled with proper patient identification (initials W, R) and elbow cyst is a firm yellow-white ovoid tissue (1.0 x 0.6 x 0.4 cm) as well as three dudley-white fibrofatty tissue fra gments (0.9 x 0.6 x 0.3 cm to 1.2 x 0.3 x 0.2 cm). ??The t issues are inked blue. ??The ovoid tissue is trisected and has a solid yellow-white cut surface. ??A cy st is not grossly identified. The ovoid tissue is entirely submitted i n 1 and the three additional fragments are entirely submitted in 2. Beth Gale 09/09/2014 08:25 AM End of Report Specimen Performing Organization Address City/State/ZIP Code Phon e Number [facility] [address] [place] [phone] SERVICES documented in this encounter Visit Diagnoses Not on filedocumented in this encounter Care Teams Oiler Bander Relationship Specialty Start Date End Date Unknown, Provider, PCP - General 10/22/08 documented as of this encounter
--- OUTSIDE RECORDS SUMMARY | 2022-01-08 01:25 | XMS_ITS | Encounter Summary ---
:1980 Author Organization [facility] Address [address] [place] [address] Care Team Providers Name Role Phone Unknown, Provider Primary Care Provider Encounter Details Date Type Department Care Team Description 10/08/2015 Results Only [facility]- Deb [place], OVEN UNLOADER [phone] [place], [place] [phone] (Wo rk) Social History Tobacco Use Types Packs/Day Years Used Date Never Assessed Sex Assigned at Date Recorded Not on file documented as of this encounter Plan of Treatment Not on filedocumented as of this encounter Procedures Procedure Name Priority Date/Time Associated Diagnosis Comme nts PAP TEST- RESULT Routine 10/08/2015 0:00 EDT Resu lts for this ONLY procedure are i n the results section. documented in this encounter Results PAP TEST- RESULT ONLY (10/08/2015 0:00 EDT) Pathology Report: CYTOPATHOLOGY REPORT [facility] Reports generated via electronic interface contain noble ginal data; SERVICES however they are lacking the format of the original re port. Caution should be taken when reading/interpreting unfo rmatted reports. Name: ? DORY ERICKSON ? Accession #: ? [id number] ? : ? 1980 (Age: [age]) ??F ?Collect Date: ? 10/08/2015 ? Location: ? [facility] ? Receive Date: ? 10/09/19 16 ? Provider: DEB TORREZ APRN Copy to: ? Final Report SPECIMEN ADEQUACY ? Satisfactory for Evaluation - transformation zone component present GENERAL CATEGORIZATION ? Epithelial Cell Abnormality INTERPRETATION ? Squamous Cell Abnormality - Atypical squamous c ells, undetermined significance (ASC-US). EDUCATIONAL NOTES/RECOMMENDATIONS ? [facility] recommends foll owing ASCCP's 2012 Updated Consensus Guidelines for the Management of Abnormal Cervical Cancer Screening T ests and Cancer Precursors (JLGTD, 2013; 17(5):S1-S27). ??Conse nsus guidelines are available online at www.asccp.org. Last Menstrual Period: 10/01/2015 Specimen/Source: ??Pap Test, Cervix/Endocervix, ThinPr ep Imaging System with manual evaluation Document reviewed and electronically signed by: ? LALO ONTIVEROS MD ? Report ??Date: 10/24/2015 13:35 HPV with Pap Test ? Date Ordered: ? 10/24/2015 ? Status: ?? Signed Out ?Date Complete: ? 10/28/2015 ? By: ??Sy stem Interface ? Date Reported: ? 10/28/2015 ? Interpretation RESULT: Negative for HPV. No E6 or E7 mRNA is detected from HPV types 16,18,31,3 3,35, 39,45,51,52,56,58,59,66, and 68 by imaging scheduler media ermelinda amplification. Comments Document reviewed and electronically signed by: ? System Interface ? Report date: 10/28/2015 By the signature above, the attending physician certif ies that he/she has personally conducted a gross and/or microscopic examin ation of the described specimens and rendered or confirmed the above diagnosi s. End of Report Specimen Performing Organization Address City/State/ZIP Code Phon e Number [facility] [address] [place] [phone] SERVICES documented in this encounter Visit Diagnoses Not on filedocumented in this encounter Care Teams Varsity Baseball Coach Relationship Specialty Start Date End Date Unknown, Provider, PCP - General 10/22/08 documented as of this encounter
--- OUTSIDE RECORDS SUMMARY | 2022-01-08 01:25 | XMS_ITS | Encounter Summary ---
:1980 Author Organization [facility] Address [address] [place] [address] Care Team Providers Name Role Phone Unknown, Provider Primary Care Provider Encounter Details Date Type Department Care Team Description 08/11/2020 Lab Requisition [facility] Outr Resulting Lab, Pathology & Laboratory Provider General acute hospital [address] [place] [address] Social History Tobacco Use Types Packs/Day Years Used Date Never Assessed Sex Assigned at Date Recorded Not on file documented as of this encounter Plan of Treatment Not on filedocumented as of this encounter Procedures Procedure Name Priority Date/Time Associated Comments Diagnosis HIV 1/2 ANTIGEN AND Routine 08/11/2020 13:00 Resu lts for this ANTIBODY, 4TH EST procedure are in GENERATION the results section. documented in this encounter Results HIV 1/2 ANTIGEN AND ANTIBODY, 4TH GENERATION (08/11/2020 13:00 EST) HIV 1 and 2 Negative Negative [facility] Antibody/p24 Comment: LABORATORY Antigen, 4th If acute HIV-1 infection is suspected in a high risk ??patient, submit plasma specimen for HIV-1 RNA quantitation test. SERV ICES Generation Fourth Generation assay performed on the [employer] [facility] [facility]. Specimen Blood - Venous blood (substance) Performing Organization Address City/State/ZIP Code Phon e Number [facility] [address] [place] [address] SERVICES documented in this encounter Visit Diagnoses Not on filedocumented in this encounter Care Teams Bobbin Washer Relationship Specialty Start Date End Date Unknown, Provider, PCP - General 10/22/08 documented as of this encounter
--- OUTSIDE RECORDS SUMMARY | 2022-01-08 01:25 | XMS_ITS | Encounter Summary ---
:1980 Author Organization [facility] Address [address] [place] [address] Care Team Providers Name Role Phone Unknown, Provider Primary Care Provider Encounter Details Date Type Department Care Team Description 09/14/2007 Results Only [facility] - Ana Rosa Stout od, COTTON WEIGHER OPERATOR conversion [address] [place] [address] [address] [place] [phone] (Wo rk) Social History Tobacco Use Types Packs/Day Years Used Date Never Assessed Sex Assigned at Date Recorded Not on file documented as of this encounter Plan of Treatment Not on filedocumented as of this encounter Procedures Procedure Name Priority Date/Time Associated Diagnosis Comme nts CYTOPATHOLOGY Routine 09/14/2007 0:00 EDT Results for this procedure are i n the results section . documented in this encounter Results CYTOPATHOLOGY (09/14/2007 0:00 EDT) Pathology Report: CYTOPATHOLOGY REPORT [facility] Reports generated via electronic interface contain noble ginal data; however they are lacking the format of the original re port. Caution should be taken when reading/interpreting unfo rmatted reports. Name: ? DORY ERICKSON ? Accession #: ? [id number] : ? 1980 (Age: 26) ??F ?Collect Date: ? 04/0 08/2007 Location: ? [facility] ? Receive Date : ? 09/15/2007 Provider: ?ANA ROSA ARLENE COTTON WEIGHER OPERATOR Copy to: ? Specimen/Source: ? ThinPrep Pap Test, Cervix/Endocervix, processed on [employer] ThinPrep Imaging System, with manual evaluation Last Menstrual Period: ? 09/03/07 Hormonal/Contraceptive Status: ? Oral contraceptives Previous Gynecologic Pathology: ? LSIL: 12/16 HPV: 12/16 CUCA I: 01/16 Treatment History: ? Cervical biopsy: 01/16 1-CUCA I 2-Chr. cervicitis Other: ? Additional clinical information: 08/17 pap neg. HPVA - HPV testing requested if ASC-US on the current ThinPrep Pap test. ? SPECIMEN ADEQUACY ? Satisfactory for Evaluation - transformation zone component present GENERAL CATEGORIZATION ? Negative for Intraepithelial Lesion or Malignan cy ? Document reviewed and electronically signed by: ? Bella Parry, SCT(ASCP) ? Report Date: ??09/21/2007 08:53 End of Report Specimen Performing Organization Address City/State/ZIP Code Phon e Number [facility] [address] [place] [address] SERVICES [facility] [address] [place] [address] documented in this encounter Visit Diagnoses Not on filedocumented in this encounter Care Teams Real Estate Administrative Assistant Relationship Specialty Start Date End Date Unknown, Provider, PCP - General 10/22/08 documented as of this encounter
[2022-01-08 16:37] LABS: Hemoglobin A1C 5.5 % (<5.7)
== END 2022-01-08 01:23 | disposition home or self-care (01) ==
LOC: LBO 01:22
PROVIDERS: PCP Nurse Practitioner Family; Visit Provider Nurse Practitioner Family
DX: R73.9 Hyperglycemia, unspecified (principal)
CPT/HCPCS: 36415; 83036

== ENCOUNTER 2022-04-26 07:59 | Day surgery (SDC) | payer BC, SELFPAY ==
[2022-04-26] VITALS (10 sets, daily range): BP systolic 99–141; BP diastolic 64–85; PULSE 75–90; RESP 11–18; TEMP 36.3–37.2; O2SAT 95–99; BMI 40.3
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
[2022-04-26 09:52] LABS: Bilirubin Negative (Negative); Blood Trace-intact (Negative); Clarity Clear (Clear); Glucose Negative (Negative); Ketones Negative (Negative); Leukocyte Esterase Trace (Negative); Nitrite Negative (Negative); Specific Gravity 1.015 (1.005-1.025); Urobilinogen 0.2 EU/dL (Up TO 0.2)
[2022-04-26 10:07] LABS: Epithelial Cells Negative HPF (Negative); Other Cells Negative (Negative); RBC 0-2 HPF (0-2)
[2022-04-26 10:08] LABS: Bacteria Rare HPF (Negative); C & S Indicated? No; Casts Negative LPF (Negative); Crystals Negative HPF (Negative); Mucus Negative (Negative)
[2022-04-26 10:27] LABS: Abs Immature Grans 0.05 10^3/uL (0.0-0.06); Absolute Lymphocyte Count 1.82 10^3/uL (1.2-3.4); Absolute Monocyte Count 0.51 10^3/uL (0.1-0.8); Basophils % 0.4; Eosinophils % 0.9; HCT 42.4 % (36.0-46.0); HGB 14.2 g/dL (11.2-15.7); Immature Grans % 0.4; Lymphocytes % 16.3; MCH 29.6 pg (27.0-33.0); MCHC 33.5 % (32.0-36.0); MCV 89 fL (80-95); MPV 9.9 fL (8.0-11.0); Monocytes % 4.6; Neutrophils % 77.4; Platelet Count 278 10^3/uL (130-400); RBC 4.79 10^6/uL (3.93-5.22); RDW 11.9 % (11.7-14.6); RDW-SD 38.3 fL; WBC 11.17 10^3/uL (4.4-10.8)
[2022-04-26 10:29] LABS: Absolute Basophil Count 0.04 10^3/uL (0.0-0.2); Absolute Neutrophil Count 8.65 10^3/uL (1.2-6.7)
[2022-04-26 10:37] LABS: ALT 45 U/L (14-59); AST 27 U/L (15-37); Albumin 3.6 g/dL (3.4-5.0); Alkaline Phosphatase 76 U/L (46-116); Anion Gap 8.6 mmol/L (3-11); BUN 8 mg/dL (7-18); Bilirubin, Total 0.5 mg/dL (0.2-1.0); CO2 27.4 mmol/L (21.0-32.0); CREATININE 0.9 mg/dL (0.55-1.02); Calcium 8.7 mg/dL (8.5-10.1); Chloride 104 mmol/L (98-107); Estimated GFR 82.88 (mL/min/1.73m2); Glucose 104 mg/dL (74-106); Lipase 48 U/L (73-393); Potassium 3.8 mmol/L (3.5-5.1); Sodium 140 mmol/L (136-145); Total Protein 7.7 g/dL (6.4-8.2)
--- NOTE | 2022-04-26 12:15 | DI.CT_ITS ---
Exam(s) CT ABDOMEN PELVIS WO EXAM: CT ABDOMEN PELVIS WO CLINICAL HISTORY: RLQ pain. TECHNIQUE: Imaging Protocol: Axial computed tomography images with coronal and sagittal reformatted images were created and reviewed. Oral: no IV: Omnipaque 350. IV infiltrated during injection. Scan performed at delayed phase. COMPARISON: No exams were available for comparison FINDINGS: ABDOMEN: Lung Bases: Dependent changes. Liver: Enlarged with fatty infiltration. No measurable mass. Gallbladder and biliary tract: No radiodense calculus or dilation. Pancreas: Normal density, no abnormal calcifications or inflammatory process. Spleen: Normal. Kidneys: Normal size, contour and axis. No radiodense stones or obstructive uropathy. No masses seen. Contrast seen in renal collecting systems Adrenal glands: No masses seen. Lymph nodes: Within normal limits. Abdominal Aorta: Abdominal portion non-dilated. PELVIS: Bladder: Minimally distended contains IV contrast.. Bowel: Appendix prominent with 9 millimeter diameter. minimal stranding in the surrounding fat and a few tiny lymph nodes. Findings suspicious for early appendicitis. No obstruction or bowel wall thi ckening. Large quantity of stool ascending and transverse colon. Peritoneal cavity: No ascites, collection. Reproductive organs: Tubal ligation clips. Uterus retro flexed. Bones: Within normal limits. IMPRESSION: Findings suspicious for early acute appendicitis. Findings called to Dr. Adrianna Ford of the emergency department. RADIATION DOSE DELIVERED: 1,311.86mGy.cm Total DLP DATA REPOSITORY: All CT scans at this facility are submitted to the National Radiology Data Registry (NRDR) Dose Index Registry (DIR) with the [employer] (ACR). RADIATION OPTIMIZATION: All CT scans at this facility use at least one of these dose optimization te chniques: automated exposure control; mA and/or kV adjustment per patient size (includes targeted exa ms where dose is matched to clinical indication); or iterative reconstruction.
[2022-04-26 14:34] LABS: Source Nasal/Nares
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
[2022-04-26] MEDS: Lactated Ringers 1,000 ML 80 ML IV (15:00)
[2022-04-26 15:07] LABS: COVID-19 PCR Negative (Negative)
[2022-04-26] MEDS: Bupivacaine 0.25% Pres-Free 30 ML VIAL (15:18)
[2022-04-26] MEDS: PIPERACILLIN/TAZO 3.375 GM in Normal Saline 50 ML IVPB (15:18)
--- NOTE | 2022-04-26 15:26 | APP_PTH ---
PATIENT: Rashida Restrepo LOC: [facility] U#:[id number] AGE/SX: 41/F ROOM: RE04/26/[address]: Sarah Valle MD : 1980 BED: DIS: 04/26/2022 SPEC #: [id number] RECD: 04/26/22 18:54 STATUS: YARELY REQ #: [id number] BING: 04/26/22 15:[address]: Sarah Valle DEPT: Surgical Specimen RECD BY: Cathie Holm ENTERED: 04/26/22 18:55 SP TYPE: Appendix OTHR DR: Norberto Miles, JOHANA Tissues: 1 - APPENDIX NOT INCIDENTAL Procedures: GROSS AND MICRO LEVEL 3 Comments: [id number]
--- NOTE | 2022-04-26 15:56 | ROE_ITS ---
Date of service: 04/26/22 Time of Service: 15:56 Operative Note Operative Note DATE OF PROCEDURE: 04/26/22 PRE-OP DIAGNOSIS: acute appendicitis POST-OP DIAGNOSIS: same PROCEDURE: laparoscopic Appendectomy SURGEON: Sarah Valle HVAC INSTRUCTOR: Beth Peter ANESTHESIA TYPE: General LMA/ETT Refer to Anesthesia Record ESTIMATED BLOOD LOSS: 25 PATHOLOGY: other (appendix) COMPLICATIONS: None Patient was transported to: PACU Patient's condition: stable Indications: Mrs Restrepo is a 41-year-old female with 36 hours of abdominal pain. White count was slightly elevated on admission to the ER. CT scan showed dilatation of the appendix with some mild fat stranding indicative of acute early appendicitis. Exam was consistent with appendicitis. The surgery was discussed with the patient as well as the risks benefits and complications and she wished to proceed. Findings: mildly inflammed and thickened appendix Procedure Description: After informed consent was obtained the patient was taken to the operating room placed in the supine position, SCDs were applied as well as monitors. A timeout was done. The patient was then placed under general anesthesia and intubated without any difficulty. At this point the abdomen was prepped and draped in a sterile surgical fashion with chlorhexidine. A second timeout was done and the patient's name, date of , operation to be performed, DVT prophylaxis, antibiotic given, and fire risk was assessed. 0.25% Bupivocaine was injected into the dermis just above the umbilicus. A small 5 mm incision was made with an 11 blade. The subcutaneous tissue was dissected bluntly with a hemostat. The skin was grasped with penetrating towel clamps on either side of the incision and then using a Visiport a 5 mm port was placed under direct visualization into the abdomen. The abdomen was insufflated. Local anesthetic was then injected just above the pubic symphysis just to the right of midline. A small 5 mm incision was made with an 11 blade and another 5 mm port was placed under direct visualization into the abdomen. The local anesthetic was then injected in the left lower quadrant area and a 12 mm incision was made with an 11 blade. A 12 mm port was then placed under d irect visualization. The patient's bed was then turned to the left and head down allowing me to sweep of the small bowel out of the right lower quadrant. The cecum was gently grasped and the appendix was identified. The appendix looked inflammed and thickened at the tip. No purulent fluid was noted. The appendix was grasped at the neck and pulled up slightly allowing me to visualize the junction with the cecum. Using the laparoscopic LigaSure the mesoappendix was slowly transected. Using a laparoscopic straight stapler the appendix was then transected at the junction with the cecum. The appendix was placed into an Endo Catch bag and removed through the 12 mm port site. The port was placed back into the abdomen and the staple line was identified. No bleeding was noted. The transected mesentery was identified and no bleeding was noted. The 2 5 mm ports were then removed under direct visualization and no bleeding was noted from the fascia. The insufflation was stopped and the 12 mm port was removed. The 12 mm port site fascia was closed with a 0 Vicryl [id number] suture. The skin was then closed with 4-0 Vicryl. The skin was cleaned and dried and skin affix was applied. The patient was woken up, extubated and taken back to recovery room in stable condition. There were no immediate complications. Sponge, instrument and needle counts were correct at the end of the case x2.
[2022-04-26] MEDS: fentaNYL 100 MCG/2 ML VIAL IVP (16:19)
--- NOTE | 2022-04-26 16:28 | PDOC.DSDIS_ITS ---
Date of service: 04/26/22 Time of Service: 16:28 Discharge Plan Disposition Patient Disposition: HOME Condition: Good Discharge Details Reason For Visit: appendicitis Attending Provider: Sarah Valle Primary Care Provider: Norberto Miles Home Meds and New Rx's Prescriptions: Continued venlafaxine 100 mg tablet 100 mg PO DAILY Qty: 90 4RF albuterol sulfate [ProAir HFA] 90 mcg/actuation HFA aerosol inhaler 2 puff inhalation Q6H PRN (Reason: bronchospasm) Qty: 6.7 0RF amitriptyline 50 mg tablet 50 mg PO QHS Qty: 90 4RF loratadine 10 MG tablet,disintegrating 10 mg PO DAILY VITAMIN D3 1,000 UNIT capsule 1,000 unit PO DAILY magnesium oxide 400 mg (241.3 mg magnesium) tablet 800 mg PO QHS bupropion HCl [Wellbutrin XL] 150 mg tablet extended release 24 hr 150 mg PO DAILY Qty: 90 3RF scopolamine base 1 mg over 3 days patch 3 day 1 patch transdermal Q3D PRN (Reason: nausea and vomiting) Qty: 4 0RF iron 325 mg (65 mg iron) capsule, extended release 325 mg PO .every other day atorvastatin 10 mg tablet 10 mg PO QHS Qty: 90 4RF Discharge Instructions Additional Instructions: Activity at Home after surgery: 1. Make sure you walk outside at least 4 times per day 2. You should be able to climb a flight of stairs 3. No driving while in pain or taking pain medications 4. No strenuous activity or heavy lifting (no more >5 lb) for 2 weeks Diet, Nutrition, & wound healin. Avoid alcohol until after you are recovered from your surgery 2. Make sure to eat plenty of lean protein (meat, fish, eggs, cottage cheese, beans) 3. Eat a variety of fruits and vegetables. Eat plenty of high fiber foods to avoid constipation. 4. Drink plenty of liquids to stay hydrated and avoid constipation Pain Medications: 1. Tylenol 650mg every 6 hours as needed and Ibuprofen 600 mg every 6 hours as needed. You may alternate between the 2 medications every 3 hours 2. If a narcotic has been prescribed take as directed only for breakthrough pain For Constipation: 1. Take Milk of Magnesia or MiraLax as needed for constipation Other: 1. You may shower daily. Do not scrub the incisions 2. Do not soak the incisions for 1 week 3. You may alternate ice and heat as needed for pain and swelling Wound Care: 1. Keep the incisions clean and dry Please call our office if you develop: 1. Fevers >101.5 2. Nausea or Vomiting 3. Worsening pain 4. Redness and thick discharge from the wounds If after hours please call the Hospital at and ask to speak to the on-call surgeon Referrals: Kristan Avila PA [[employer]] - 05/13/22 9:45 am Activity:: as above Remove Dressings/Wound Care:: 24 hours Shower/Bathe:: 24 hours Diet:: As Tolerated Discharge Orders Discharge Orders: Discharge Order (Routine); Ordered 04/26/22 Ordered By: Sarah Valle DS: Diagnosis Discharge Diagnosis (1) Acute appendicitis: Status: Acute
[2022-04-26] MEDS: Ketorolac 30 MG/ML VIAL IVP (16:31)
--- NOTE | 2022-04-26 17:05 | W.ANESPOSTOP ---
Postoperative Evaluation Date, Time and Location Date Performed: 04/26/22 Time Performed: 17:06 Patient Location: Day Surgery Unit Vital Signs Most Recent Imported Vital Signs: Most Recent Vital Signs Temp Pulse Resp BP Pulse Ox 36.4 C L 85 18 121/77 95 04/26/22 16:39 04/26/22 16:39 04/26/22 16:39 04/26/22 16:39 04/26/22 16:39 Pain Score Most Recent Pain Score: Most Recent Pain Score Pain Level 5 04/26/22 16:20 Assessment Mental Status: Awake (Alert & Oriented to Patient Baseline) Airway and Respiratory Function: Patent airway with normal (patient baseline) respiratory exam Cardiovascular Function: Hemodynamically Stable Hydration Status: Adequately Hydrated Nausea & Vomiting: No Nausea or Vomiting Pain: Pain is tolerable per patient Peripheral Nerve Block: Patient did not receive a nerve block
== END 2022-04-26 17:42 | disposition home or self-care (01) ==
LOC: ER 14:13 → DSU 14:45
PROVIDERS: Emergency Provider Student in an Organized Health Care Education/Training Program; PCP Nurse Practitioner Family; Visit Provider Surgery
PROC: 0DTJ4ZZ Resection of Appendix, Percutaneous Endoscopic Approach (ICD-10-PCS; CPT 44970; principal; 2022-04-26 14:15)
DX: K35.80 Unspecified acute appendicitis (principal); Z20.822 Contact with and (suspected) exposure to COVID-19
CPT/HCPCS: 44970; 36415; 80053; 81025; 83690; 87635; 99285; 74176; 81003; 81015; 85025; 88304; J1100; J1885; J2405; J2543; J2704; J3010

== ENCOUNTER 2022-12-30 02:36 | Outpatient (CLI) | payer BC, SELFPAY ==
[2022-12-30 16:33] LABS: Calculated LDL 111 mg/dL (<100); Cholesterol 185 mg/dL (<200); HDL Cholesterol 40 mg/dL (40-60); Triglyceride 174 mg/dL (<150)
== END 2022-12-30 02:37 | disposition home or self-care (01) ==
PROVIDERS: PCP Nurse Practitioner Family; Visit Provider Nurse Practitioner Family
DX: E78.5 Hyperlipidemia, unspecified (principal)
CPT/HCPCS: 36415; 80061

== ENCOUNTER 2023-08-12 02:46 | Outpatient (CLI) | payer BC, SELFPAY ==
[2023-08-12 16:42] LABS: Abs Immature Grans 0.02 10^3/uL (0.0-0.06); Absolute Basophil Count 0.04 10^3/uL (0.0-0.2); Absolute Eosinophil Count 0.15 10^3/uL (0.0-0.7); Absolute Lymphocyte Count 2.13 10^3/uL (1.2-3.4); Absolute Monocyte Count 0.61 10^3/uL (0.1-0.8); Absolute Neutrophil Count 5.89 10^3/uL (1.2-6.7); Basophils % 0.5; Eosinophils % 1.7; HCT 42.7 % (36.0-46.0); HGB 14.5 g/dL (11.2-15.7); Immature Grans % 0.2; Lymphocytes % 24.1; MCH 29.2 pg (27.0-33.0); MCV 86 fL (80-95); MPV 10.4 fL (8.0-11.0); Monocytes % 6.9; Neutrophils % 66.6; Platelet Count 263 10^3/uL (130-400); RBC 4.97 10^6/uL (3.93-5.22); RDW 12.4 % (11.7-14.6); RDW-SD 38.9 fL; WBC 8.84 10^3/uL (4.4-10.8)
[2023-08-12 16:53] LABS: Hemoglobin A1C 5.3 % (<5.7)
[2023-08-12 18:27] LABS: ALT 28 U/L (14-59); AST 11 U/L (15-37); Albumin 3.7 g/dL (3.4-5.0); Alkaline Phosphatase 67 U/L (46-116); Anion Gap 13.3 mmol/L (3-11); BUN 14 mg/dL (7-18); Bilirubin, Total 0.4 mg/dL (0.2-1.0); CO2 21.7 mmol/L (21.0-32.0); Calcium 9.2 mg/dL (8.5-10.1); Chloride 106 mmol/L (98-107); Estimated GFR 72.58 (mL/min/1.73m2); FREE T4 0.79 ng/dL (0.76-1.46); Glucose 128 mg/dL (74-106); Potassium 3.6 mmol/L (3.5-5.1); Sodium 141 mmol/L (136-145); TSH 2.13 uIU/Ml (0.36-3.74); Total Protein 7.4 g/dL (6.4-8.2)
[2023-08-12 18:39] LABS: Vitamin D 25 Total 30.5 ng/mL (30-100)
[2023-08-12 18:45] LABS: T4 8.3 ug/dL (4.7-13.3)
[2023-08-13 22:06] LABS: T3, Total 141 ng/dL (97-169)
== END 2023-08-12 02:47 | disposition home or self-care (01) ==
PROVIDERS: PCP Nurse Practitioner Family; Visit Provider Nurse Practitioner Psychiatric/Mental Health
DX: Z00.00 Encounter for general adult medical examination without abnormal findings (principal); F43.10 Post-traumatic stress disorder, unspecified; Z79.899 Other long term (current) drug therapy
CPT/HCPCS: 36415; 80053; 82306; 83036; 84436; 84439; 84443; 84480; 85025

== ENCOUNTER 2024-02-25 19:41 | Emergency (ER) | payer BC, SELFPAY ==
[2024-02-25 19:42] VITALS: BP 142/85; PULSE 92; RESP 20; TEMP 36.2; O2SAT 99
[2024-02-25 19:47] VITALS: BP 142/85; PULSE 92; RESP 20; TEMP 36.2; O2SAT 99
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
[2024-02-25] MEDS: Ketorolac 15 MG/ML VIAL IVP (20:21)
[2024-02-25] MEDS: Normal Saline 1,000 ML 1000 ML IV (20:21)
[2024-02-25] MEDS: Dexamethasone 10 MG/ML VIAL IVP (20:21)
[2024-02-25] MEDS: diphenhydrAMINE 50 MG/ML VIAL 25 MG IVP (20:21)
[2024-02-25] MEDS: Prochlorperazine 10 MG/2 ML VIAL IVP (20:23)
[2024-02-25 21:26] VITALS: BP 125/77; PULSE 78; RESP 16; TEMP 36.2; O2SAT 96
== END 2024-02-25 21:26 | disposition home or self-care (01) ==
PROVIDERS: Emergency Provider Emergency Medicine; PCP Nurse Practitioner Family
DX: G43.909 Migraine, unspecified, not intractable, without status migrainosus (principal)
CPT/HCPCS: 96361; 96374; 96375; 99284; J0780; J1100; J1200; J1885

== ENCOUNTER 2025-01-17 04:43 | Outpatient (CLI) | payer BC, SELFPAY ==
[2025-01-17 13:34] LABS: Hemoglobin A1C 5.5 % (<5.7)
[2025-01-17 14:07] LABS: Calculated LDL 105 mg/dL (<100); Cholesterol 188 mg/dL (<200); HDL Cholesterol 44 mg/dL (>or=50); Triglyceride 199 mg/dL (<150)
== END 2025-01-17 04:44 | disposition home or self-care (01) ==
LOC: LBO 04:43
PROVIDERS: PCP Nurse Practitioner Family; Visit Provider Nurse Practitioner Family
DX: Z13.220 Encounter for screening for lipoid disorders (principal); Z13.1 Encounter for screening for diabetes mellitus
CPT/HCPCS: 36415; 80061; 83036

== ENCOUNTER 2025-01-31 17:37 | Outpatient (REF) | payer BC, SELFPAY ==
--- NOTE | 2025-01-31 15:55 | PAPFT_PTH ---
PATIENT: Rashida Restrepo LOC: [facility] U#:[id number] AGE/SX: 44/F ROOM: RE01/31/[address]: Beatrice Conklin DO : 1980 BED: DIS: 01/31/2025 SPEC #: [id number] RECD: 01/31/25 17:48 STATUS: YARELY REQ #: [id number] BING: 01/31/25 15:[address]: Beatrice Conklin DEPT: [facility] Cytology RECD BY: Cathie Holm ENTERED: 01/31/25 17:49 SP TYPE: PAPFT OTHR DR: Norberto Miles NP Tissues: 1 - CX/ENDOCX FOR PAP SMEARS Procedures: PAP THIN PREP/[facility] Screening HPV DNA PROBE Comments: [id number] (HPV 16 & 18/45)
== END 2025-01-31 17:38 | disposition home or self-care (01) ==
LOC: LBN 17:37
PROVIDERS: PCP Nurse Practitioner Family; Visit Provider Obstetrics & Gynecology
DX: Z11.51 Encounter for screening for human papillomavirus (HPV) (principal); Z01.419 Encounter for gynecological examination (general) (routine) without abnormal findings; R87.610 Atypical squamous cells of undetermined significance on cytologic smear of cervix (ASC-US)
CPT/HCPCS: 88142; 87624

== ENCOUNTER 2025-02-06 14:55 | Outpatient (CLI) | payer BC, SELFPAY ==
--- NOTE | 2025-02-06 17:06 | DI.MAMMO_ITS ---
Exam(s) MAMMO SCREENING EXAM: MAMMO SCREENING CLINICAL HISTORY: screening TECHNIQUE: Bilateral full field digital CC and MLO mammographic images were obtained with 3D tomosynthesis and utilizing computer aided detection (CAD). COMPARISON: This is a baseline examination. There are no priors for comparison. FINDINGS: Masses/Architectural Distortion: No suspicious masses or areas of architectural distortion are present. There nodules in the upper outer quadrants of both breasts which are ovoid with lucent notch is consistent with intraparenchymal lymph nodes. Microcalcifications: No suspicious pleomorphic-type are seen. Skin Thickening/Nipple Retraction: None. IMPRESSION: 1. There are no findings to suggest malignancy at this time. 2. Unless there is more urgent need, screening mammography is recommended, as per [employer] guidelines. BI-RADS Category 2 - Benign Findings Breast Density - Category C - The breast are heterogeneously dense, which may obscure small masses. Breast density Category C or D implies that the patient has dense breast tissue. Dense breast tissue can make it harder to find cancer on a mammogram. Dense breast tissue is also associated with an increased risk of breast cancer. This information about the result of the mammogram report was provided to the patient to raise their awareness. Use this report when you speak with the patient about their risks for breast cancer, which includes their family history. At that time, you may recommend additional screening tests (Ultrasound or MRI) as these tests may add significant information. A negative radiographic report should not delay biopsy if a dominant or clinically suspicious mass is present. Up to ten percent of cancers are not identified on mammography. A negative report may reinforce clinical impression. Adenosis and dense breasts may obscure an underlying neoplasm. False positive reports average 6 to 10%. Patient will receive a letter notifying them of these results.
== END 2025-02-06 15:15 ==
LOC: DI 14:56
PROVIDERS: PCP Nurse Practitioner Family; Visit Provider Obstetrics & Gynecology
DX: Z12.31 Encounter for screening mammogram for malignant neoplasm of breast (principal); R92.333 Mammographic heterogeneous density, bilateral breasts
CPT/HCPCS: 77063; 77067